=== PATIENT | female | born 1990 | race Hispanic/Latino ===

== ENCOUNTER 2018-03-01 11:10 | Emergency (ER) | payer BC ==
[2018-03-01 11:17] VITALS: BP 112/73; PULSE 87; RESP 19; TEMP 98.3; O2SAT 97
[2018-03-01] MEDS ORDERED: Tdap Vaccine 0.5 ml Vial (10-64 yrs) IM ONE (12:03)
[2018-03-01] MEDS ORDERED: Bupivacaine HCl 0.25% PF (30 ml) Inj ONE (12:23)
[2018-03-01] MEDS ORDERED: cefTRIAXone (Rocephin) 1 gm Inj ONE (12:48)
[2018-03-01 12:50] LABS: BASO # 0.1 K/uL (0.0-0.2); BASO % 0.6 % (0.0-2.0); EOS # 0.2 K/uL (0.0-0.7); HEMOGLOBIN 13.6 g/dL (12.0-16.0); LYMPH # 1.6 K/uL (1.0-4.3); MEAN CELL VOLUME 97.2 fl (81.0-99.0); MEAN CORPUSCULAR HEMOGLOBIN 33.1 pg (27.0-31.0); MEAN CORPUSCULAR HGB CONC 34.1 g/dL (33.0-37.0); MEAN PLATELET VOLUME 8.2 fl (7.2-11.7); MONO # 0.8 K/uL (0.0-0.8); MONO % 9.8 % (0.0-10.0); NEUT # 5.7 K/uL (1.8-7.0); NEUT % 68.6 % (50.0-75.0); NRBC % 0.1 % (0.0-0.0); RBC 4.12 Mil/uL (3.80-5.20); RED CELL DISTRIBUTION WIDTH 12.2 % (11.5-14.5); WHITE BLOOD COUNT 8.3 K/uL (4.8-10.8)
--- NOTE | 2018-03-01 12:58 | ED PDOC ---
Lower Extremity Pain/Injury Time Seen by Provider: 03/01/18 11:24 Chief Complaint (Nursing): Lower Extremity Problem/Injury Chief Complaint (Provider): Right foot pain/infection History Per: Patient History/Exam Limitations: no limitations Onset/Duration Of Symptoms: Days (since Tuesday night) Current Symptoms Are (Timing): Still Present Additional Complaint(s): Ligia Ingram is a 27 year old female, with no significant past medical history, who presents to the emergency department for evaluation of right foot pain and swelling. Patient states on Tuesday night she wore a new pair of shoes and noticed a blister to the top of her foot. She reports increased redness, swelling, and pain to the area since yesterday. She was seen at an urgent care last night for the same symptoms and was started on Bactrim and Ibuprofen. Patient states she has taken x2 doses of Bactrim and last dose of ibuprofen was at 09:00 today. Patient states when she visited the urgent care they outlined the redness on her foot and told to return if redness exceeded the margins. She noticed it did this morning upon waking up, which prompted ED visit. She denies any fever, chills, falls or trauma. No further medical complaints at present. LMP now and tetanus is up to date. PMD: None Past Medical History Reviewed: Historical Data, Nursing Documentation, Vital Signs Vital Signs: Last Vital Signs Temp 98.3 F 03/01/18 11:16 Pulse 87 03/01/18 11:16 Resp 19 03/01/18 11:16 BP 112/73 03/01/18 11:16 Pulse Ox 97 03/01/18 11:16 - Medical History PMH: No Chronic Diseases - Surgical History Other surgeries: surgical pinning of toe fracture - Family History Family History: States: No Known Family Hx - Social History Current smoker - smoking cessation education provided: No Alcohol: Social Drugs: Denies - Home Medications Home Medications: Ambulatory Orders Medication Instructions Recorded Acetaminophen [Acetaminophen 8 650 mg PO Q8 PRN #24 tablet.er 03/01/18 Hour] - Allergies Allergies/Adverse Reactions: Allergies Allergy/AdvReac Type Severity Reaction Status Date / Time bacitracin Allergy RASH Verified 03/01/18 12:02 [From Neosporin ([id number])] neomycin Allergy RASH Verified 03/01/18 12:02 [From Neosporin ([id number])] polymyxin B Allergy RASH Verified 03/01/18 12:02 [From Neosporin ([id number])] Review of Systems ROS Statement: Except As Marked, All Systems Reviewed And Found Negative Constitutional: Negative for: Fever, Chills Musculoskeletal: Positive for: Foot Pain (right w/ swelling) Physical Exam - Reviewed Nursing Documentation Reviewed: Yes Vital Signs Reviewed: Yes - Physical Exam Comments: GENERAL APPEARANCE: Patient is awake, alert, oriented x 3, in no acute distress. Resting comfortably, ambulatory in ED. NECK: Supple, FROM ENT: Mucus membranes moist. Airway patent, (-) stridor. SKIN: Warm, dry; (-) cyanosis. RESPIRATORY: Lungs clear to auscultation bilaterally, (-) rales (-) rhonchi (-) wheezing. Speaking in full sentences. CARDIAC: (-) irregularity LOWER EXTREMITY: 4cm x 5cm area of erythema and warmth to the dorsum of the right mid foot with a central wound with (+) pus drainage, (+) localized tenderness, (+) mild edema, (+) fluctuance. (+) Decreased ROM of ankle and foot secondary to pain. Sensation and capillary refill intact. Achilles tendon intact and nontender. Knee and foot: (-) injury . CARDIOVASCULAR: (+) distal pulse. NEUROLOGIC: (+) distal sensation. - Laboratory Results Result Diagrams: 03/01/18 12:40 03/01/18 12:40 - ECG O2 Sat by Pulse Oximetry: 97 (RA) Pulse Ox Interpretation: Normal Medical Decision Making Medical Decision Making: Time: 11:24 Initial impression: cellulitis of the foot Initial Plan: --Reevaluation --Patient declined pain medicine. --Podiatry consult 12:05 -Spoke with podiatry resident, Dr. Clifton Nelson who recommends X-rays, CBC, BMP, IV access, and Rocephin 1gm IVPB. Agreeable to evaluating patient in ED. 1300 XR reviewed, radiology report follows Date of service: 03/01/2018 PROCEDURE: Right Foot Radiographs. HISTORY: joint pain, cellulitis COMPARISON: None. FINDINGS: BONES: Normal. No fracture. JOINTS: Normal. SOFT TISSUES: Normal. OTHER FINDINGS: None. IMPRESSION: Normal right foot radiographs. 1330 -Podiatry resident performing I&D at bedside. See consult note. -Labs reviewed and grossly unremarkable. No elevation of WBC. H&H stable. 1440 Foot NV intact after I&D performed by podiatry. Dressing in place s/p procedure. On re-evaluation, patient reports improvement of symptoms. On exam, patient remains AAOx3, in no acute distress. Lungs clear to auscultation, cardiac RRR, repeat neuro exam shows no focal findings. VSS, stable for discharge. Patient advised to continue Bactrim and Ibuprofen as prescribed from urgent care visit. Lab/Diagnostic results d/w the patient in great detail. Diagnosis of cellulitis of foot d/w the patient. Based on history, exam and diagnostic results, plan will be for outpatient follow up with Dr Mancia(podiatry). Patient instructed to follow-up with pmd / referral provided / the clinic in 1- 2 days without fail. Advised to take medication as prescribed. Return to the emergency room at any time for any new or worsening symptoms. Patient states she fully agrees with and understands discharge instructions. States that she agrees with the plan and disposition. Verbalized and repeated discharge instructions and plan. I have given the patient opportunity to ask any additional questions. Scribe Attestation: Documented by Og Yeh, acting as a scribe for Sheila Voss PA-C. Provider Scribe Attestation: All medical record entries made by the Scribe were at my direction and personally dictated by me. I have reviewed the chart and agree that the record accurately reflects my personal performance of the history, physical exam, medical decision making, and the department course for this patient. I have also personally directed, reviewed, and agree with the discharge instructions and disposition. Disposition - Clinical Impression Clinical Impression: Cellulitis of foot without toes, right, Foot pain, right - Patient ED Disposition Is Patient to be Admitted: No Counseled Patient/Family Regarding: Studies Performed, Diagnosis, Need For Followup, Rx Given - Disposition Referrals: Orlando Hua DPM [Staff Provider] - Disposition: Routine/Home Disposition Time: 14:43 Condition: STABLE Additional Instructions: FOLLOW UP WITH PODIATRY DIRECTED. CALL OFFICE FOR FOLLOW UP APPOINTMENT. REFERRAL PROVIDED. RETURN TO ED WITH ANY NEW OR WORSENING SYMPTOMS. CONTINUE IBUPROFEN AND BACTRIM DIRECTED FROM URGENT CARE VISIT. Prescriptions: Acetaminophen [Acetaminophen 8 Hour] 650 mg PO Q8 PRN #24 tablet.er PRN Reason: Pain, Moderate (4-7) Instructions: Cellulitis (Skin Infection), Adult (DC) Forms: [employer] (Y[place]i) Print Language: YAKUT - POA Present On Arrival: None Results - Lab Results Lab Results: 03/01/18 03/01/18 12:40 12:40 WBC 8.3 RBC 4.12 Hgb 13.6 Hct 40.0 MCV 97.2 MCH 33.1 H MCHC 34.1 RDW 12.2 Plt Count 236 MPV 8.2 Neut % (Auto) 68.6 Lymph % (Auto) 19.0 L [place] % (Auto) 9.8 Eos % (Auto) 2.0 Baso % (Auto) 0.6 Neut # (Auto) 5.7 Lymph # (Auto) 1.6 [place] # (Auto) 0.8 Eos # (Auto) 0.2 Baso # (Auto) 0.1 Sodium 142 Potassium 4.4 Chloride 105 Carbon Dioxide 25 Anion Gap 16 BUN 13 Creatinine 0.8 Est GFR ( Amer) > 60 Est GFR (Non-Af Amer) > 60 Random Glucose 88 Calcium 9.5
[2018-03-01 13:15] LABS: BLOOD UREA NITROGEN 13 mg/dl (7-17); CALCIUM 9.5 mg/dL (8.4-10.2); GFR AFRICAN-AMERICAN > 60; GFR NON-AFRICAN AMERICAN > 60
[2018-03-01] MEDS ORDERED: Povidone Iodine Topical 10% Sol ONE (14:00)
--- NOTE | 2018-03-01 17:16 | CP.PCM.CON ---
History of Present Illness - History of Present Illness History of Present Illness: Podiatry consult notes for attending Kenia Gardner 27 y/o F patient seen and evaluated at the bed side in the ED for pain, redness and drainage from her right ankle. Patient was sitting in bed comfortably. Patient is AAO X 3 and in NAD. Patient states that she did long walking last Tuesday and the she noted bilateral blisters in front of her ankle. Patient states that Tuesday the blisters ruptured and the right one started to drain yellow drainage and the area around it became red and painful. Patient states that it got worse. She states that yesterday she went to urgent care where she got a prescription of Bactrim Ds BID and Ibuprofen 600 mg tab. Patient states that she had 2 doses of bactrim but the redness got worse. Patient states that yesterday she had fever, malaise and SOB. Patient denies any other pedal complaint. Patient denies any N or V. PMH: None PSH: None Allergies: Bacitracin, Neomycin and polymyxin B Social Hx: Denies smoking, ETOH or Illicit drug use. Review of Systems - Review of Systems Review of Systems: As per HPI Past Patient History - Past Social History Alcohol: Social Drugs: Denies - CARDIAC Hx Cardiac Disorders: No - PULMONARY Hx Respiratory Disorders: No - NEUROLOGICAL Hx Neurological Disorder: No - PSYCHIATRIC Hx Substance Use: No - SURGICAL HISTORY Hx Surgeries: Yes Other/Comment: right 2nd toe surgery 02/2017 Meds Home Medications: Home Medication List Medication Instructions Recorded Confirmed Type Acetaminophen [Acetaminophen 8 650 mg PO Q8 PRN #24 tablet.er 03/01/18 Rx Hour] Allergies/Adverse Reactions: Allergies Allergy/AdvReac Type Severity Reaction Status Date / Time bacitracin Allergy RASH Verified 03/01/18 12:02 [From Neosporin ([id number])] neomycin Allergy RASH Verified 03/01/18 12:02 [From Neosporin ([id number])] polymyxin B Allergy RASH Verified 03/01/18 12:02 [From Neosporin ([id number])] Physical Exam - Constitutional Appears: Well, Non-toxic, No Acute Distress - Head Exam Head Exam: ATRAUMATIC, NORMOCEPHALIC - Extremities Exam Additional comments: Lower extremity focused exam: Vasc: DP/PT 2/4 b/l, Cap refill < 3 sec in all digits. Temp gradient warm to cool in the left side and warm to warmer in the right side from proximal to distal. Erythema noted at the anterior surface of the right ankle. mild non pitting edema noted in the anterior aspect of the right ankle. Neuro: gross and protective sensation are intact bilaterally. Derm: pin size open lesion covered noted in the anterior surface of the right ankle draining pus. no malodor. It's surrounded by area of erythema about 7 cm in diameter. MSK: Muscle power intact 5/5 in all groups bilaterally. Pain with ankle plantarflexion on the right side. pain on palpation of the wound and the erythema sites. - Neurological Exam Neurological exam: Alert, Oriented x3 - Psychiatric Exam Psychiatric exam: Normal Affect, Normal Mood Results - Vital Signs Recent Vital Signs: Last Vital Signs Temp 98.3 F 03/01/18 11:16 Pulse 87 03/01/18 11:16 Resp 19 03/01/18 11:16 BP 112/73 03/01/18 11:16 Pulse Ox 97 03/01/18 14:51 - Labs Result Diagrams: 03/01/18 12:40 03/01/18 12:40 Labs: Laboratory Results - last 24 hr 03/01/18 03/01/18 12:40 12:40 WBC 8.3 RBC 4.12 Hgb 13.6 Hct 40.0 MCV 97.2 MCH 33.1 H MCHC 34.1 RDW 12.2 Plt Count 236 MPV 8.2 Neut % (Auto) 68.6 Lymph % (Auto) 19.0 L [place] % (Auto) 9.8 Eos % (Auto) 2.0 Baso % (Auto) 0.6 Neut # (Auto) 5.7 Lymph # (Auto) 1.6 [place] # (Auto) 0.8 Eos # (Auto) 0.2 Baso # (Auto) 0.1 Sodium 142 Potassium 4.4 Chloride 105 Carbon Dioxide 25 Anion Gap 16 BUN 13 Creatinine 0.8 Est GFR ( Amer) > 60 Est GFR (Non-Af Amer) > 60 Random Glucose 88 Calcium 9.5 Assessment & Plan - Assessment and Plan (Free Text) Assessment: 27 y/o F patient seen and evaluated at the bed side in the ED for abcess and cellulitis of the right foot. Plan: Patient seen and evaluated at the ED. Plan discussed with the attending Kenia Gardner. Patient chart, vitals and labs reviewed; afebrile and no leukocytosis. X-ray reviewed and showed no signs of osseous anomalies. Surgical I & D discussed with the patient to drain the abcess. Benefits risks and possible complications of the intervention explained to the patient. Patient agreed to d the I & D. Informed consent signed by the patient. Local anesthesia infiltration around the abscess using 9 cc of marcaine 0.25%. After patient get numbed by local anesthesia under sterile condition incision done using 11 blade at the site of pus drainage. Using sterile hemostat opening of all potential pus loculi was done. Squeezing around the opening to drain the pus. washout done using sterile saline syringe. Dressing was done using Betadine, DSD and anjana. Patient instructed to continue the Bactrim DS tab. BID and to use the ibuprofen for pain if needed. Patient expressed verbal understanding Patient to follow up at Kenia Gardner office. - Date & Time Date: 03/01/18 Time: 17:33
== END 2018-03-01 15:05 | disposition home or self-care (01) ==
LOC: H.ER 11:10
DX: L02.611 Cutaneous abscess of right foot (principal); L03.115 Cellulitis of right lower limb
CPT/HCPCS: 10060; 73630; 80048; 85025; 87070; 96365; 99283; J0696